=== PATIENT | female | born 1960 | race Two or more races ===

== ENCOUNTER 2021-08-28 09:57 | Emergency (ER) | payer OTHER ==
[~2021-08-28] VITALS: Ht 170.2 cm; Wt 86.2 kg
[2021-08-28] MEDS ORDERED: AVAPRO75 MG PO (10:10)
[2021-08-28] MEDS ORDERED: TOPROL XL25 M1 PO (10:12)
[2021-08-28] MEDS ORDERED: NORVASC5 MG PO (10:12)
[2021-08-28] MEDS ORDERED: NORFLEX100MG PO (12:34)
[2021-08-28] MEDS ORDERED: KETO10TA2 PO (12:34)
== END 2021-08-28 12:47 | disposition home or self-care (01) ==
LOC: ER 09:57
DX: M25.562 Pain in left knee (principal); I10 Essential (primary) hypertension